=== PATIENT | female | born 1945 | race Caucasian/White ===

== ENCOUNTER 2019-04-25 09:54 | Day surgery (SDC) | payer MEDICARE ==
[~2019-04-25] VITALS: Ht 160 cm; Wt 59.0 kg
[2019-04-25 10:25] VITALS: BP 127/73
[2019-04-25] MEDS ORDERED: ISOPROTERENOL 0.2MG/ML, 5ML ONE (11:35)
== END 2019-04-25 13:30 | disposition home or self-care (01) ==
LOC: CACL 09:54 → EDSTATUS 11:30 → CACL 13:30
PROVIDERS: ATTEND Internal Medicine Cardiovascular Disease
DX: R55 Syncope and collapse (principal); I34.0 Nonrheumatic mitral (valve) insufficiency; Q21.1 Atrial septal defect; E78.5 Hyperlipidemia, unspecified; E03.9 Hypothyroidism, unspecified; Z72.89 Other problems related to lifestyle; Z79.82 Long term (current) use of aspirin; Z79.890 Hormone replacement therapy; Z79.899 Other long term (current) drug therapy; Z86.73 Personal history of transient ischemic attack (TIA), and cerebral infarction without residual deficits; Z82.49 Family history of ischemic heart disease and other diseases of the circulatory system; Z84.1 Family history of disorders of kidney and ureter; Z82.3 Family history of stroke
CPT/HCPCS: 0399T; 93306; 93660

== ENCOUNTER 2019-05-24 09:57 | Day surgery (SDC) | payer MEDICARE ==
[~2019-05-24] VITALS: Ht 160 cm; Wt 59.0 kg
[~2019-05-24 09:57] MED LIST: LIDOCAINE 1%, 20ML ONE
[2019-05-24] MEDS ORDERED: LIDOCAINE 2%, 20ML SQ PRN (11:00)
== END 2019-05-24 11:00 | disposition home or self-care (01) ==
LOC: CACL 09:57
PROVIDERS: ATTEND Internal Medicine Cardiovascular Disease
DX: Z45.09 Encounter for adjustment and management of other cardiac device (principal); R55 Syncope and collapse; Z79.82 Long term (current) use of aspirin
CPT/HCPCS: 33285; C1764